=== PATIENT | male | born 1995 | race African-American/Black ===

== ENCOUNTER 2017-03-03 19:10 | Emergency (ER) | payer OTHER, SELFPAY | END 2017-03-03 19:51 | disposition home or self-care (01) | LOC: ERS 19:10 | DX: R42 Dizziness and giddiness (principal); F31.9 Bipolar disorder, unspecified; F17.210 Nicotine dependence, cigarettes, uncomplicated | CPT/HCPCS: 99284 ==

== ENCOUNTER 2017-09-27 23:28 | Emergency (ER) | payer BC, SELFPAY | END 2017-09-28 00:01 | disposition home or self-care (01) | LOC: ERS 23:28 | DX: R19.7 Diarrhea, unspecified (principal); F31.9 Bipolar disorder, unspecified; F17.210 Nicotine dependence, cigarettes, uncomplicated; J45.909 Unspecified asthma, uncomplicated | CPT/HCPCS: 99283 ==